=== PATIENT | male | born 2000 | race Asian ===

== ENCOUNTER 2018-03-11 14:08 | Emergency (ER) | payer OTHER ==
[~2018-03-11] VITALS: Ht 182.9 cm; Wt 152.0 kg
[2018-03-11 14:21] VITALS: BP_SYST 119
[2018-03-11] MEDS ORDERED: LIDOCAINE/EPI 2% 1:100000 20 ML VIAL INJ ONE (16:00)
[2018-03-11 16:40] VITALS: BP_SYST 119
== END 2018-03-11 16:40 | disposition home or self-care (01) ==
LOC: SED 14:08
DX: S63.621A Sprain of interphalangeal joint of right thumb, initial encounter (principal); W18.30XA Fall on same level, unspecified, initial encounter; Y93.61 Activity, american tackle football; Y92.321 Football field as the place of occurrence of the external cause; Y99.8 Other external cause status
CPT/HCPCS: 73140-TC; 99284